=== PATIENT | female | born 1930 | race Caucasian/White ===

== ENCOUNTER 2016-09-20 13:38 | Inpatient (IN) | payer MEDICARE, MEDICAID ==
[2016-09-20] MEDS ORDERED: Lactated Ringers 500 ML IV ONE (14:23)
[2016-09-20] MEDS ORDERED: Sodium Chloride 0.9% 10 ML Syringe FLUSH PRN (14:23)
--- NOTE | 2016-09-20 14:28 | EDM.PDOC ---
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 She is a full code denies any fevers or problems with urination - Related Data Allergies Allergy/AdvReac Type Severity Reaction Status Date / Time No Known Allergies Allergy Verified 09/20/16 14:04 Home Meds: Home Meds Citalopram [Citalopram Hbr] 20 mg PO DAILY 01/25/14 [History] Raloxifene [Evista] 60 mg PO DAILY 01/25/14 [History] Oxybutynin 5 mg PO BID 10/23/15 [History] Acetaminophen with Codeine [Acetaminophen-Cod #3] 1 tab PO ASDIRECTED PRN [History] Anastrozole [Anastrozole] 1 tab PO DAILY 09/20/16 [History] Aspirin [Halfprin] 1 tab PO DAILY 09/20/16 [History] Past Medical History HEENT History: Reports: Impaired Vision Cardiovascular History: Reports: Hypertension Other Genitourinary History: Occasional uti. 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: Musculoskeletal History: Reports: Osteoarthritis, Other (See Below) Other Musculoskeletal History: bone cancer Psychiatric History: Reports: Depression Oncologic (Cancer) History: Reports: Bone, Breast - Infectious Disease History Infectious Disease History: Reports: Chicken Pox - Past Surgical History GI Surgical History: Reports: Colonoscopy Female Surgical History: Reports: Mastectomy Social & Family History - Tobacco Use Smoking Status *Q: Never Smoker - Recreational Drug Use Recreational Drug Use: No ED ROS GENERAL - Review of Systems Review Of Systems: See Below Constitutional: Reports: Weakness, Fatigue. Denies: Fever, Chills HEENT: Reports: No Symptoms Respiratory: Reports: No Symptoms Cardiovascular: Reports: No Symptoms GI/Abdominal: Reports: No Symptoms : Reports: No Symptoms Musculoskeletal: Reports: No Symptoms Skin: Reports: No Symptoms Neurological: Reports: No Symptoms ED EXAM, GENERAL - Physical Exam Exam: See Below Free Text/Narrative:: General: Elderly ill-appearing female minimally communicative, alert HEENT: head is atraumatic normocephalic, eyes pupils equal round reactive to light, sclera clear no conjunctivitis appreciated. Ears blocked by cerumen bilaterally. Nose no septal deviation, nares are clear, no blood present. Mouth mucosa is dry and pink no erythema or exudate noted in soft palate, tongue is midline uvula is midline, dentures in place. Neck: Supple no thyromegaly no tracheal deviation. Nodes: Cervical nodes subclavicular nodes nontender no palpable lymphadenopathy noted. Lungs: clear to auscultation bilaterally with symmetrical respirations, no adventitious noise appreciated. CV: Regular rate and rhythm S1 and S2 appreciated grade 2/6 systolic ejection murmur noted at left sternal border Abdomen: Soft, nontender, no palpable masses or organomegaly appreciated, no distention no guarding bowel sounds are present, . Neuro: Cranial nerves II through XII grossly intact Skin: Warm and dry, intact Extremities: No lower extremity edema appreciated, Course - Vital Signs Last Recorded V/S: Last Vital Signs Temp 99.0 F 09/20/16 16:22 Pulse 78 09/20/16 16:22 Resp 16 09/20/16 16:22 BP 122/61 09/20/16 16:22 Pulse Ox 92 L 09/20/16 16:22 - Orders/Labs/Meds Orders: Active Orders 24 hr Category Date Time Status Peripheral IV Care [RC] . DIRECTED Care 09/20/16 14:24 Active Consult to Spiritual Care [CONS] Routine Cons 09/20/16 14:50 Active CULTURE URINE [RM] Urgent Lab 09/20/16 17:01 Uncollected Lactated Ringers [Ringers, Lactated] 1,000 ml Med 09/20/16 16:11 Active IV BOLUS Sodium Chloride 0.9% [Saline Flush] Med 09/20/16 14:23 Active 10 ml FLUSH ASDIRECTED PRN Peripheral IV Insertion Adult [OM.PC] Stat Oth 09/20/16 14:23 Ordered Medication Orders Lactated Ringer's (Ringers, Lactated) 1,000 mls @ 999 mls/hr IV BOLUS ONE Stop: 09/20/16 17:11 Last Admin: 09/20/16 16:31 Dose: 999 mls/hr Sodium Chloride (Saline Flush) 10 ml FLUSH ASDIRECTED PRN PRN Reason: Keep Vein Open Last Admin: 09/20/16 14:43 Dose: 10 ml Labs: Laboratory Tests 09/20/16 09/20/16 09/20/16 Range/Units 14:43 14:43 14:43 WBC 9.0 (4.5-11.0) K/uL RBC 3.04 L (3.30-5.50) M/uL Hgb 8.2 L D (12.0-15.0) g/dL Hct 26.2 L (36.0-48.0) % MCV 86 (80-98) fL MCH 27 (27-31) pg MCHC 31 L (32-36) % Plt Count 280 (150-400) K/uL Neut % (Auto) 66 (36-66) % Lymph % (Auto) 25 (24-44) % [place] % (Auto) 9 H (2-6) % Eos % (Auto) 0 L (2-4) % Baso % (Auto) 0 (0-1) % Sodium 138 L (140-148) mmol/L Potassium 4.0 (3.6-5.2) mmol/L Chloride 101 (100-108) mmol/L Carbon Dioxide 27 (21-32) mmol/L Anion Gap 14.0 (5.0-14.0) mmol/L BUN 18 (7-18) mg/dL Creatinine 1.1 H (0.6-1.0) mg/dL Est Cr Clr Drug Dosing 28.78 mL/min Estimated GFR (MDRD) 47 L (>60) Glucose 97 (74-106) mg/dL Lactic Acid 1.1 (0.4-2.0) mmol/L Calcium 9.4 (8.5-10.1) mg/dL Total Bilirubin 0.3 (0.2-1.0) mg/dL AST 27 (15-37) U/L ALT 10 L (12-78) U/L Alkaline Phosphatase 83 (46-116) U/L Total Protein 7.0 (6.4-8.2) g/dL Albumin 2.3 L (3.4-5.0) g/dL Globulin 4.7 H (2.3-3.5) g/dL Albumin/Globulin Ratio 0.5 L (1.2-2.2) Urine Color Urine Appearance Urine pH (4.5-8.0) Ur Specific [place] (1.008-1.030) Urine Protein (NEGATIVE) mg/dL Urine Glucose (UA) (NEGATIVE) mg/dL Urine Ketones (NEGATIVE) mg/dL Urine Occult Blood (NEGATIVE) Urine Nitrite (NEGATIVE) Urine Bilirubin (NEGATIVE) Urine Urobilinogen (NORMAL) mg/dL Ur Leukocyte Esterase (NEGATIVE) Urine RBC (0-5) Urine WBC (0-5) Ur Epithelial Cells Amorphous Sediment Urine Bacteria Urine Mucus 09/20/16 Range/Units 16:22 WBC (4.5-11.0) K/uL RBC (3.30-5.50) M/uL Hgb (12.0-15.0) g/dL Hct (36.0-48.0) % MCV (80-98) fL MCH (27-31) pg MCHC (32-36) % Plt Count (150-400) K/uL Neut % (Auto) (36-66) % Lymph % (Auto) (24-44) % [place] % (Auto) (2-6) % Eos % (Auto) (2-4) % Baso % (Auto) (0-1) % Sodium (140-148) mmol/L Potassium (3.6-5.2) mmol/L Chloride (100-108) mmol/L Carbon Dioxide (21-32) mmol/L Anion Gap (5.0-14.0) mmol/L BUN (7-18) mg/dL Creatinine (0.6-1.0) mg/dL Est Cr Clr Drug Dosing mL/min Estimated GFR (MDRD) (>60) Glucose (74-106) mg/dL Lactic Acid (0.4-2.0) mmol/L Calcium (8.5-10.1) mg/dL Total Bilirubin (0.2-1.0) mg/dL AST (15-37) U/L ALT (12-78) U/L Alkaline Phosphatase (46-116) U/L Total Protein (6.4-8.2) g/dL Albumin (3.4-5.0) g/dL Globulin (2.3-3.5) g/dL Albumin/Globulin Ratio (1.2-2.2) Urine Color Yellow Urine Appearance Cloudy Urine pH 5.0 (4.5-8.0) Ur Specific [place] 1.025 (1.008-1.030) Urine Protein Negative (NEGATIVE) mg/dL Urine Glucose (UA) Normal (NEGATIVE) mg/dL Urine Ketones 15 H (NEGATIVE) mg/dL Urine Occult Blood Negative (NEGATIVE) Urine Nitrite Positive H (NEGATIVE) Urine Bilirubin Negative (NEGATIVE) Urine Urobilinogen Normal (NORMAL) mg/dL Ur Leukocyte Esterase Negative (NEGATIVE) Urine RBC 0-5 (0-5) Urine WBC 0-5 (0-5) Ur Epithelial Cells Rare Amorphous Sediment Few Urine Bacteria Many Urine Mucus Few Meds: Medications Generic Name Dose Route Start Last Admin Trade Name Frebrody PRN Reason Stop Dose Admin Lactated Ringer's 1,000 mls @ 999 mls/hr 09/20/16 16:11 09/20/16 16:31 Ringers, Lactated IV 09/20/16 17:11 999 mls/hr BOLUS ONE Administration Sodium Chloride 10 ml 09/20/16 14:23 09/20/16 14:43 Saline Flush FLUSH 10 ml ASDIRECTED PRN Administration Keep Vein Open Discontinued Medications Generic Name Dose Route Start Last Admin Trade Name Frebrody PRN Reason Stop Dose Admin Lactated Ringer's 500 mls @ 999 mls/hr 09/20/16 14:23 09/20/16 14:43 Ringers, Lactated IV 09/20/16 14:53 999 mls/hr .BOLUS ONE Administration Departure - Departure Time of Disposition: 17:09 Disposition: Home, Self-Care 01 Condition: good Clinical Impression: UTI, Urinary tract infectious disease, Weakness - Discharge Information Forms: ED Department Discharge - My Orders Last 24 Hours: My Active Orders 09/20/16 14:23 Sodium Chloride 0.9% [Saline Flush] 10 ml FLUSH ASDIRECTED PRN Peripheral IV Insertion Adult [OM.PC] Stat 09/20/16 14:24 Peripheral IV Care [RC] . DIRECTED 09/20/16 14:50 Consult to Spiritual Care [CONS] Routine 09/20/16 16:11 Lactated Ringers [Ringers, Lactated] 1,000 ml IV BOLUS 09/20/16 17:01 CULTURE URINE [RM] Urgent - Assessment/Plan Last 24 Hours: My Active Orders 09/20/16 14:23 Sodium Chloride 0.9% [Saline Flush] 10 ml FLUSH ASDIRECTED PRN Peripheral IV Insertion Adult [OM.PC] Stat 09/20/16 14:24 Peripheral IV Care [RC] . DIRECTED 09/20/16 14:50 Consult to Spiritual Care [CONS] Routine 09/20/16 16:11 Lactated Ringers [Ringers, Lactated] 1,000 ml IV BOLUS 09/20/16 17:01 CULTURE URINE [RM] Urgent Plan: Assessment Acuity = chronic Site and laterality = weakness and urinary tract infection complicated patient with history of breast cancer with metastases to the bone Etiology = multifactorial Manifestations = none Location of injury = home Lab values = hemoglobin low 8.2 consistent normochromic anemia sodium low at 138 consistent hyponatremia creatinine elevated at 1.1 consistent chronic renal failure stage GIV albumin low at 2.3 consistent hypoalbuminemia urinalysis positive for nitrates urine cultures pending Plan called and discussed the case with hospitalist nurse liaison he agreed to come and evaluate the patient emergency department did review her CODE STATUS and consultation with spiritual services also consistent with DO NOT RESUSCITATE This note was dictated using [email or web address] voice recognition software please call with any questions.
[2016-09-20] MEDS ORDERED: Lactated Ringers 1,000 ML IV ONE (16:11)
[2016-09-20] MEDS ORDERED: cefTRIAXone 1 GM in Sodium Chloride 0.9% 50 ML IV SCH (18:00)
--- NOTE | 2016-09-20 18:06 | PCM.HP ---
H&P History of Present Illness - General Date of Service: 09/20/16 Admit Problem/Dx: Admission Diagnosis/Problem Admission Diagnosis/Problem Acute cystitis Source of Information: Patient, Family, Provider History Limitations: Reports: Altered Mental Status (mild confusion ) - History of Present Illness Initial Comments - Free Text/Narative: Gina presents to the emergency room today with progressive generalized weakness and dehydration. Her family reports that she has been going downhill for approximately the last month with a more rapid decline in the past few days. She has been eating and drinking very little. She is too weak to get out of bed at this point. She has been confused at home. They haven't noticed any fevers. Her bowels have been moving normally. She has not complained of chest pain or shortness of breath or abdominal pain. She does have some mild to moderate right lateral pelvis and hip pain where she has a known cancer metastasis. This deep aching pain is somewhat relieved with Tylenol with Codeine. Trying to put any weight on the leg causes severe pain. She has not been able to put any weight on her left leg today because of her weakness. She is currently receiving oral anastrozole to treat and aggressive metastatic breast cancer. She has lost a significant amount of weight. Workup in the emergency room revealed significant dehydration, acute cystitis, anemia and profound weakness. She's not safe for outpatient management at this time. - Related Data Allergies/Adverse Reactions: Allergies Allergy/AdvReac Type Severity Reaction Status Date / Time No Known Allergies Allergy Verified 09/20/16 14:04 Home Medications: Home Meds Citalopram [Citalopram Hbr] 20 mg PO DAILY 01/25/14 [History] Raloxifene [Evista] 60 mg PO DAILY 01/25/14 [History] Oxybutynin 5 mg PO BID 10/23/15 [History] Acetaminophen with Codeine [Acetaminophen-Cod #3] 1 tab PO ASDIRECTED PRN [History] Anastrozole [Anastrozole] 1 tab PO DAILY 09/20/16 [History] Aspirin [Halfprin] 1 tab PO DAILY 09/20/16 [History] Past Medical History HEENT History: Reports: Impaired Vision Cardiovascular History: Reports: Hypertension Other Genitourinary History: Occasional uti. 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: Musculoskeletal History: Reports: Osteoarthritis, Other (See Below) Other Musculoskeletal History: bone cancer Psychiatric History: Reports: Depression Oncologic (Cancer) History: Reports: Bone, Breast - Infectious Disease History Infectious Disease History: Reports: Chicken Pox - Past Surgical History GI Surgical History: Reports: Colonoscopy Female Surgical History: Reports: Mastectomy Social & Family History - Family History Cardiac: Reports: Heart Failure (son) - Tobacco Use Smoking Status *Q: Never Smoker - Caffeine Use Caffeine Use: Reports: None - Alcohol Use Alcohol Use History: No - Recreational Drug Use Recreational Drug Use: No H&P Review of Systems - Review of Systems: Review Of Systems: See Below Free Text/Narrative: A complete 12 point review of systems was obtained. Pertinent positives and negatives are noted in the history of present illness. All other systems were reviewed and were negative except as noted. Exam - Exam Exam: See Below - Vital Signs Vital Signs: Last Vital Signs Temp 37.2 C 09/20/16 16:22 Pulse 78 09/20/16 16:22 Resp 16 09/20/16 16:22 BP 122/61 09/20/16 16:22 Pulse Ox 92 L 09/20/16 16:22 Weight: 60 kg - Exam Quality Assessment: No: Supplemental Oxygen General: Alert, Oriented, Cooperative, Mild Distress HEENT: No: Mucosa Moist & [place] (very dry), Scleral Icterus Neck: Supple, Trachea Midline. No: Lymphadenopathy, Thyromegaly Lungs: Clear to Auscultation, Normal Respiratory Effort Cardiovascular: Regular Rate, Regular Rhythm, Systolic Murmur (2/6 JASMINE throughout) Abdomen: Normal Bowel Sounds, Soft. No: Distention, Tenderness Back Exam: No: Paraspinal Tenderness, Vertebral Tenderness Extremities: Edema (mild ankle edema right > left), Other (ttp over right lateral hip and lateral pelvis ) Peripheral Pulses: 1+: Dorsalis Pedis (L), Dorsalis Pedis (R) Skin: Warm, Dry, Intact Neuro Extensive - Mental Status: Alert, Nl Response to Commands. No: Oriented x3 Neuro Extensive - Motor, Sensory, Reflexes: CN II-XII Intact. No: Dysarthria, Abnormal Motor, Tremor Psychiatric: Alert, Normal Affect - Patient Data Lab Results last 24 hrs: Laboratory Results - last 24 hr 09/20/16 09/20/16 09/20/16 Range/Units 14:43 14:43 14:43 WBC 9.0 (4.5-11.0) K/uL RBC 3.04 L (3.30-5.50) M/uL Hgb 8.2 L D (12.0-15.0) g/dL Hct 26.2 L (36.0-48.0) % MCV 86 (80-98) fL MCH 27 (27-31) pg MCHC 31 L (32-36) % Plt Count 280 (150-400) K/uL Neut % (Auto) 66 (36-66) % Lymph % (Auto) 25 (24-44) % [place] % (Auto) 9 H (2-6) % Eos % (Auto) 0 L (2-4) % Baso % (Auto) 0 (0-1) % Sodium 138 L (140-148) mmol/L Potassium 4.0 (3.6-5.2) mmol/L Chloride 101 (100-108) mmol/L Carbon Dioxide 27 (21-32) mmol/L Anion Gap 14.0 (5.0-14.0) mmol/L BUN 18 (7-18) mg/dL Creatinine 1.1 H (0.6-1.0) mg/dL Est Cr Clr Drug Dosing 28.78 mL/min Estimated GFR (MDRD) 47 L (>60) Glucose 97 (74-106) mg/dL Lactic Acid 1.1 (0.4-2.0) mmol/L Calcium 9.4 (8.5-10.1) mg/dL Total Bilirubin 0.3 (0.2-1.0) mg/dL AST 27 (15-37) U/L ALT 10 L (12-78) U/L Alkaline Phosphatase 83 (46-116) U/L Total Protein 7.0 (6.4-8.2) g/dL Albumin 2.3 L (3.4-5.0) g/dL Globulin 4.7 H (2.3-3.5) g/dL Albumin/Globulin Ratio 0.5 L (1.2-2.2) Urine Color Urine Appearance Urine pH (4.5-8.0) Ur Specific [place] (1.008-1.030) Urine Protein (NEGATIVE) mg/dL Urine Glucose (UA) (NEGATIVE) mg/dL Urine Ketones (NEGATIVE) mg/dL Urine Occult Blood (NEGATIVE) Urine Nitrite (NEGATIVE) Urine Bilirubin (NEGATIVE) Urine Urobilinogen (NORMAL) mg/dL Ur Leukocyte Esterase (NEGATIVE) Urine RBC (0-5) Urine WBC (0-5) Ur Epithelial Cells Amorphous Sediment Urine Bacteria Urine Mucus 09/20/16 Range/Units 16:22 WBC (4.5-11.0) K/uL RBC (3.30-5.50) M/uL Hgb (12.0-15.0) g/dL Hct (36.0-48.0) % MCV (80-98) fL MCH (27-31) pg MCHC (32-36) % Plt Count (150-400) K/uL Neut % (Auto) (36-66) % Lymph % (Auto) (24-44) % [place] % (Auto) (2-6) % Eos % (Auto) (2-4) % Baso % (Auto) (0-1) % Sodium (140-148) mmol/L Potassium (3.6-5.2) mmol/L Chloride (100-108) mmol/L Carbon Dioxide (21-32) mmol/L Anion Gap (5.0-14.0) mmol/L BUN (7-18) mg/dL Creatinine (0.6-1.0) mg/dL Est Cr Clr Drug Dosing mL/min Estimated GFR (MDRD) (>60) Glucose (74-106) mg/dL Lactic Acid (0.4-2.0) mmol/L Calcium (8.5-10.1) mg/dL Total Bilirubin (0.2-1.0) mg/dL AST (15-37) U/L ALT (12-78) U/L Alkaline Phosphatase (46-116) U/L Total Protein (6.4-8.2) g/dL Albumin (3.4-5.0) g/dL Globulin (2.3-3.5) g/dL Albumin/Globulin Ratio (1.2-2.2) Urine Color Yellow Urine Appearance Cloudy Urine pH 5.0 (4.5-8.0) Ur Specific [place] 1.025 (1.008-1.030) Urine Protein Negative (NEGATIVE) mg/dL Urine Glucose (UA) Normal (NEGATIVE) mg/dL Urine Ketones 15 H (NEGATIVE) mg/dL Urine Occult Blood Negative (NEGATIVE) Urine Nitrite Positive H (NEGATIVE) Urine Bilirubin Negative (NEGATIVE) Urine Urobilinogen Normal (NORMAL) mg/dL Ur Leukocyte Esterase Negative (NEGATIVE) Urine RBC 0-5 (0-5) Urine WBC 0-5 (0-5) Ur Epithelial Cells Rare Amorphous Sediment Few Urine Bacteria Many Urine Mucus Few Result Diagrams: 09/20/16 14:43 09/20/16 14:43 *Q Meaningful Use (ADM) - VTE *Q VTE Criteria *Q: - VTE Risk Assess *Q Each Risk Factor Represents 1 Point: Swollen Legs, Current Total Score 1 Point Risk Factors: 1 Each Risk Factor Represents 3 Points: Age 75 Years or Greater, Present Cancer or Chemotherapy Total Score 3 Point Risk Factors: 6 - Stroke *Q Stroke Criteria *Q: - AMI *Q AMI Criteria *Q: - Problem List (1) Acute cystitis SNOMED Code(s): 97263147 ICD Code: N30.00 - ACUTE CYSTITIS WITHOUT HEMATURIA Status: Acute Current Visit: Yes Qualifiers: Hematuria presence: with hematuria Qualified Code(s): N30.01 - Acute cystitis with hematuria (2) Weakness SNOMED Code(s): 85499082 ICD Code: R53.1 - WEAKNESS Status: Acute Current Visit: Yes (3) Breast cancer metastasized to bone SNOMED Code(s): 401181614, 880806364 ICD Code: C50.919 - MALIGNANT NEOPLASM OF UNSP SITE OF UNSPECIFIED FEMALE BREAST; C79.51 - SECONDARY MALIGNANT NEOPLASM OF BONE Status: Chronic Current Visit: Yes Qualifiers: Laterality: unspecified laterality Qualified Code(s): C50.919 - Malignant neoplasm of unspecified site of unspecified female breast; C79.51 - Secondary malignant neoplasm of bone Problem List Initiated/Reviewed/Updated: Yes Orders Last 24hrs: Active Orders 24 hr Category Date Time Status Peripheral IV Care [RC] . DIRECTED Care 09/20/16 14:24 Active Consult to Spiritual Care [CONS] Routine Cons 09/20/16 14:50 Active CULTURE URINE [RM] Urgent Lab 09/20/16 17:01 Uncollected Sodium Chloride 0.9% [Saline Flush] Med 09/20/16 14:23 Active 10 ml FLUSH ASDIRECTED PRN cefTRIAXone [Rocephin] 1 gm Med 09/20/16 18:00 Active Sodium Chloride 0.9% [Normal Saline] 50 ml IV Q24H Peripheral IV Insertion Adult [OM.PC] Stat Oth 09/20/16 14:23 Ordered Resuscitation Status Routine Resus Stat 09/20/16 17:57 Ordered Medication Orders Ceftriaxone Sodium 1 gm/ (Sodium Chloride) 50 mls @ 100 mls/hr IV Q24H INDIGO Sodium Chloride (Saline Flush) 10 ml FLUSH ASDIRECTED PRN PRN Reason: Keep Vein Open Last Admin: 09/20/16 14:43 Dose: 10 ml Assessment/Plan Comment:: Assessment and plan - Acute cystitis - urine sample suggestive of infection and this could explain the more rapid acceleration of her weakness. She was recently treated with nitrofurantoin as an outpatient. She's not currently febrile. -Empiric ceftriaxone -IV fluids -Followup urine culture Recurrent, metastatic breast cancer - aggressive cancer with bony metastases. She has been receiving palliative oral chemotherapy but continues to decline. She has had a significant weight loss and has a very poor [id number] and functional status at this time. She and her family are interested in a hospice consultation to see if there services fit well with her goals of care. Quality of life is very important to Gina. She does not want heroic invasive measures that will likely cause significant pain and not improve her long-term outcome. -buccal Morphine for pain since she has trouble swallowing her pills -Hospice consultation in the morning Maintenance issues - - DVT prophylaxis - SCDs - GI prophylaxis - not indicated - Nutrition - regular diet as tolerated - Wilson catheter - not indicated CODE STATUS - DO NOT RESUSCITATE/DO NOT INTUBATE Admission justification - This patient will be admitted for inpatient services and is medically appropriate meeting medical necessity for inpatient admission as outlined in my documentation. I reasonably expect the patient will require inpatient services that span a period time over 2 midnights. I reasonably expect this patient to be discharged or transferred within 96 hours after admission to the [facility]. Disposition - anticipate discharge to home with family after the hospital stay, possibly with hospice Primary care physician - Dr Octavio Cordero M.D.
[2016-09-20] MEDS ORDERED: Polyethylene Glycol 3350 Powder 17 GM Packet PO PRN (18:40)
[2016-09-20] MEDS ORDERED: Morphine 10 MG/0.5 ML Oral Syringe PO PRN (18:40)
[2016-09-20] MEDS ORDERED: Acetaminophen 325 MG Tab PO PRN (18:40)
[2016-09-20] MEDS ORDERED: Ondansetron 4 MG Tab.DIS PO PRN (18:40)
[2016-09-20] MEDS: Sodium Chloride 0.9% 1,000 ML IV SCH (19:16)
[2016-09-20] MEDS: Oxybutynin 5 MG Tab PO SCH (22:14)
[2016-09-21] MEDS: Oxybutynin 5 MG Tab PO SCH (08:54)
[2016-09-21] MEDS ORDERED: Citalopram 20 MG Tab PO SCH (09:00)
[2016-09-21] MEDS ORDERED: Aspirin 81 MG Tab.EC PO SCH (09:00)
[2016-09-21] MEDS ORDERED: Anastrozole 1 MG Tab PO SCH (09:00)
[2016-09-21] MEDS ORDERED: Raloxifene 60 MG Tab PO SCH (09:00)
[2016-09-21 12:08] VITALS: BP 120/51
--- NOTE | 2016-09-21 12:14 | PCM.DCSUM1 ---
Discharge Summary - Hospital Course Brief History: 86-year-old female with recurrent metastatic breast cancer who presented with generalized weakness and confusion. She was admitted for management of anemia of chronic disease and acute cystitis in addition to generalized weakness. - Discharge Data Discharge Date: 09/21/16 Discharge Disposition: Home, Self-Care 01 Condition: Stable - Discharge Diagnosis/Problem(s) (1) Acute cystitis SNOMED Code(s): 19534547 ICD Code: N30.00 - ACUTE CYSTITIS WITHOUT HEMATURIA Status: Acute Current Visit: Yes Qualifiers: Hematuria presence: with hematuria Qualified Code(s): N30.01 - Acute cystitis with hematuria (2) Weakness SNOMED Code(s): 43551987 ICD Code: R53.1 - WEAKNESS Status: Acute Current Visit: Yes (3) Breast cancer metastasized to bone SNOMED Code(s): 344160367, 965458389 ICD Code: C50.919 - MALIGNANT NEOPLASM OF UNSP SITE OF UNSPECIFIED FEMALE BREAST; C79.51 - SECONDARY MALIGNANT NEOPLASM OF BONE Status: Chronic Current Visit: Yes Qualifiers: Laterality: unspecified laterality Qualified Code(s): C50.919 - Malignant neoplasm of unspecified site of unspecified female breast; C79.51 - Secondary malignant neoplasm of bone - Patient Summary/Data Consults: Consultations 09/20/16 18:40 Consult to Hospice [CONS] Routine Comment: Physician Instructions: Reason for Consult: metastatic breast cancer, weight loss Person Notified: will call for referral in the morning Hospital Course: Gina presented to the emergency room yesterday with weakness and confusion that had increased from baseline. Workup in the emergency room was remarkable for acute cystitis and significant dehydration as well as anemia. She was admitted to the hospital and started on antibiotics for her acute cystitis. Given her dehydration and hemoglobin was already well we elected to transfuse 1 unit of packed red blood cells because it was expected that the dilution of the IV fluids with lower it even further. We did provide some IV fluids overnight to improve her hydration. There was significant concern at the time of admission that she was losing her awtts with her recurrent cancer. We discussed potential treatment options and the family was interested in a discussion with the hospice folks about their services. There were no acute events overnight following admission. The morning after she continues to be very weak. She does not have much of an appetite and has ate very little. Hemoglobin has improved some with the blood transfusion. After discussing her situation with the hospice folks her son Beny and daughter Roseanne have elected to enroll Gina in hospice. Gina seems very comfortable with this plan given her very difficult cancer situation complicated further by her weakness, significant weight loss and deconditioning. The patient was very interested in going home the day after admission rather than staying an additional night for more IV fluids or antibiotics. Family was very comfortable taking her home in her current situation. The plan is for hospice admission tomorrow, the day after discharge. She will be receiving a prescription for buccal morphine to help control her right hip and pelvis pain from the metastatic cancer at the time of her hospice admission. The patient was admitted to inpatient status with the idea that her situation and condition would require at least a 2 midnights in the hospital for management and a safe discharge plan. Her decision to enrole in hospice and be discharged the very next day were unforeseen and prompted a stay less than that of 2 midnights. - Patient Instructions Diet: Regular Diet as Tolerated Activity: As Tolerated Driving: Do Not Drive Showering/Bathing: May Shower Notify Provider of: Fever, Increased Pain Other/Special Instructions: 1. You were in the hospital for management of acute cystitis and generalized weakness. I recommend for additional days of antibiotic therapy with cephalexin. You should take this twice daily with meals. 2. I have placed a referral to hospice. They will help to provide care for you and your family after hospital discharge. The goal of hospice care is to provide improved [id number] during the end of life process with your recurrent and untreatable cancer. 3. Stop taking Evista and anastrozole. These medications are not likely to be helpful and may in fact be causing harm at this time. - Discharge Plan Prescriptions/Med Rec: Cephalexin [Keflex 250 MG/5 ML Susp] 500 mg PO BID #80 ml Home Medications: Home Meds Citalopram [Citalopram HBr] 20 mg PO DAILY 01/25/14 [History] Oxybutynin 5 mg PO BID 10/23/15 [History] Aspirin [Halfprin] 1 tab PO DAILY 09/20/16 [History] Cephalexin [Keflex 250 MG/5 ML Susp] 500 mg PO BID #80 ml 09/21/16 [Rx] Patient Handouts: Hospice Referrals: Robert Cunningham MD [Physician] - (as needed) - Discharge Summary/Plan Comment DC Time >30 min.: No (25) - Patient Data Vitals - Most Recent: Last Vital Signs Temp 37.0 C 09/21/16 12:07 Pulse 70 09/21/16 12:07 Resp 16 09/21/16 12:07 BP 120/51 L 09/21/16 12:07 Pulse Ox 94 L 09/21/16 12:07 Weight - Most Recent: 57.652 kg I&O - Last 24 hours: Intake & Output 09/20/16 09/21/16 09/21/16 22:59 06:59 14:59 Intake Total 0 1089 Balance 0 1089 Lab Results - Last 24 hrs: Laboratory Results - last 24 hr 09/21/16 09/21/16 Range/Units 05:11 05:26 WBC 8.2 (4.5-11.0) K/uL RBC 3.16 L (3.30-5.50) M/uL Hgb 8.7 L (12.0-15.0) g/dL Hct 27.5 L (36.0-48.0) % MCV 87 (80-98) fL MCH 28 (27-31) pg MCHC 32 (32-36) % Plt Count 234 (150-400) K/uL Sodium 139 L (140-148) mmol/L Potassium 3.6 (3.6-5.2) mmol/L Chloride 104 (100-108) mmol/L Carbon Dioxide 27 (21-32) mmol/L Anion Gap 11.6 (5.0-14.0) mmol/L BUN 14 (7-18) mg/dL Creatinine 0.9 (0.6-1.0) mg/dL Est Cr Clr Drug Dosing 38.75 mL/min Estimated GFR (MDRD) 59 L (>60) Glucose 76 (74-106) mg/dL Calcium 9.1 (8.5-10.1) mg/dL Med Orders - Current: Current Medications Acetaminophen (Tylenol) 650 mg PO Q4H PRN PRN Reason: Pain (Mild 1-3)/fever Anastrozole (Arimidex) 1 mg PO DAILY [facility] Last Admin: 09/21/16 08:55 Dose: 1 mg Aspirin (Halfprin) 81 mg PO DAILY [facility] Last Admin: 09/21/16 08:54 Dose: 81 mg Citalopram Hydrobromide (Celexa) 20 mg PO DAILY [facility] Last Admin: 09/21/16 08:54 Dose: 20 mg Ceftriaxone Sodium 1 gm/ (Sodium Chloride) 50 mls @ 100 mls/hr IV Q24H [facility] Last Admin: 09/20/16 18:46 Dose: 100 mls/hr Sodium Chloride (Normal Saline) 1,000 mls @ 75 mls/hr IV ASDIRECTED [facility] Last Admin: 09/20/16 19:16 Dose: 75 mls/hr Morphine Sulfate (Morphine 10 Mg/0.5 Ml Oral Syringe) 5 - 10 mg PO Q2H PRN PRN Reason: Pain Ondansetron HCl (Zofran Odt) 4 mg PO Q6H PRN PRN Reason: Nausea able to take PO Oxybutynin Chloride (Oxybutynin) 5 mg PO BID [facility] Last Admin: 09/21/16 08:54 Dose: 5 mg Polyethylene Glycol (Miralax) 17 gm PO DAILY PRN PRN Reason: Constipation Raloxifene HCl (Evista) 60 mg PO DAILY [facility] Last Admin: 09/21/16 09:27 Dose: 60 mg Sodium Chloride (Saline Flush) 10 ml FLUSH ASDIRECTED PRN PRN Reason: Keep Vein Open Last Admin: 09/20/16 14:43 Dose: 10 ml Discontinued Medications Lactated Ringer's (Ringers, Lactated) 500 mls @ 999 mls/hr IV .BOLUS ONE Stop: 09/20/16 14:53 Last Admin: 09/20/16 14:43 Dose: 999 mls/hr Lactated Ringer's (Ringers, Lactated) 1,000 mls @ 999 mls/hr IV BOLUS ONE Stop: 09/20/16 17:11 Last Admin: 09/20/16 16:31 Dose: 999 mls/hr *Q Meaningful Use (DIS) - VTE *Q VTE Criteria *Q: - Stroke *Q Stroke Criteria *Q: - AMI *Q AMI Criteria *Q:
[2016-09-21] MEDS: Sodium Chloride 0.9% 1,000 ML IV SCH (12:46)
== END 2016-09-21 16:25 | disposition hospice, home (50) | DRG 690 ==
LOC: JP.ED 13:38 → JP.MS 17:56
PROVIDERS: ADMIT Internal Medicine; ATTEND Internal Medicine
PROC: 30233N1 Transfusion of Nonautologous Red Blood Cells into Peripheral Vein, Percutaneous Approach (ICD-10-PCS; principal; 2016-09-20)
DX: N30.00 Acute cystitis without hematuria (principal); C79.51 Secondary malignant neoplasm of bone; E86.0 Dehydration; C50.919 Malignant neoplasm of unspecified site of unspecified female breast; Z66 Do not resuscitate; Z51.5 Encounter for palliative care; D63.8 Anemia in other chronic diseases classified elsewhere; R53.1 Weakness; I10 Essential (primary) hypertension; F32.9 Major depressive disorder, single episode, unspecified; M19.90 Unspecified osteoarthritis, unspecified site; H54.7 Unspecified visual loss; Z90.10 Acquired absence of unspecified breast and nipple
CPT/HCPCS: 36415; 80053; 81001; 83605; 85025; 86850; 86900; 86901; 86920; 86922; 96361; 99285; J7050; J7120 ×2; 36430; 80048; 85027; 87086; 87088; 87186; 96360; 96365; A9270-GY; J0696; J7040; P9016